=== PATIENT | female | born 2000 | race Caucasian/White ===

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

== ENCOUNTER 2018-07-18 16:13 | Emergency (ER) | payer OTHER ==
[2018-07-18 16:33] VITALS: RESP 20; TEMP 98.4; O2SAT 100
[2018-07-18] MEDS ORDERED: ONDANSETRON HCL 4 MG TAB PO ONE (17:05)
[2018-07-18] MEDS ORDERED: ONDANSETRON HCL 4 MG TAB ONE (17:16)
[2018-07-18 18:37] VITALS: BP 111/77; PULSE 79
== END 2018-07-18 18:37 | disposition home or self-care (01) | DRG 392 ==
LOC: ED 16:13
DX: R11.2 Nausea with vomiting, unspecified (principal); T14.8XXA Other injury of unspecified body region, initial encounter; W19.XXXA Unspecified fall, initial encounter; R51 Headache; R40.2362 Coma scale, best motor response, obeys commands, at arrival to emergency department; R40.2142 Coma scale, eyes open, spontaneous, at arrival to emergency department; R40.2252 Coma scale, best verbal response, oriented, at arrival to emergency department
CPT/HCPCS: 36415; 70450; 84703; 99283; A9270-GY

== ENCOUNTER 2019-02-01 18:36 | Emergency (ER) | payer OTHER ==
[2019-02-01 18:48] VITALS: TEMP 97.8
[2019-02-01] MEDS ORDERED: KETOROLAC TROMETHAMINE 30 MG/ML SOL IV ONE (19:10)
[2019-02-01] MEDS ORDERED: ONDANSETRON HCL 4 MG/2 ML SOL IV ONE (19:10)
[2019-02-01] MEDS ORDERED: SODIUM CHLORIDE 0.9% 1000ML 1,000 ML IV ONE (19:11)
[2019-02-01] MEDS ORDERED: DIPHENHYDRAMINE 50 MG/ML SOL IV ONE (19:12)
[2019-02-01] MEDS ORDERED: KETOROLAC TROMETHAMINE 30 MG/ML SOL ONE (19:28)
[2019-02-01] MEDS ORDERED: ONDANSETRON HCL 4 MG/2 ML SOL ONE (19:28)
[2019-02-01] MEDS ORDERED: DIPHENHYDRAMINE 50 MG/ML SOL ONE (19:28)
[2019-02-01 20:04] VITALS: RESP 16
[2019-02-01 20:50] VITALS: BP 123/79; PULSE 67; O2SAT 97
== END 2019-02-01 20:45 | disposition home or self-care (01) | DRG 103 ==
LOC: ED 18:36
DX: G43.119 Migraine with aura, intractable, without status migrainosus (principal)
CPT/HCPCS: 84703; 96365; 96374; 96375; 99282; 99284; J1200; J1885; J2405